=== PATIENT | female | born 1945 | race Caucasian/White ===

== ENCOUNTER → 2016-08-10 | Outpatient (CLI) | payer OTHER, MEDICARE ==
--- NOTE | 2016-08-10 10:06 | MA ---
Screening Digital Mammogram with Digital Breast Tomosynthesis Clinical Indications: Routine screening. Mother with history breast cancer in her 40s and again in he r 70s. Technique: Standard cephalocaudal projections are obtained. Digital breast tomosynthesis was perform ed in the MLO projection with reconstruction at 1.0 mm slice thickness and composite MLO views recons tructed. This examination is processed by the CAD computer aided detection system. Comparison: July 28, 2015; June 19, 2014; and studies dating back to May 24, 2009. Breast density: D; The breasts are extremely dense, which lowers the sensitivity of mammography. Findings: CAD was reviewed. There are no new masses, new clusters of microcalcifications, or significant axillary lymphadenopathy . Impression: Negative mammogram. BI-RADS 1. Recommendation: Routine screening mammogram is recommended in one year. Dense mammographic pattern limits the sensitivity of mammography in this patient. If there is a clini roosevelt palpable abnormality, recommend additional imaging with ultrasound if clinically indicated. [facility] will send a result letter to the patient. Negative mammography should not preclude additional workup of a clinically suspicious finding. The patient's information is entered into a reminder system with a target due date for her next mammo gram.
== END ==
LOC: FIMAGING 09:27
DX: Z12.31 Encounter for screening mammogram for malignant neoplasm of breast (principal); Z80.3 Family history of malignant neoplasm of breast
CPT/HCPCS: G0202

== ENCOUNTER → 2017-04-10 | Outpatient (CLI) | payer OTHER, MEDICARE | LOC: FIMAGING 13:47 | PROVIDERS: ATTEND Internal Medicine | DX: Z13.828 Encounter for screening for other musculoskeletal disorder (principal) ==

== ENCOUNTER → 2017-08-14 | Outpatient (CLI) | payer OTHER, MEDICARE | LOC: FIMAGING 11:12 | PROVIDERS: ATTEND Internal Medicine | DX: Z12.31 Encounter for screening mammogram for malignant neoplasm of breast (principal) ==

== ENCOUNTER 2018-03-04 07:01 | Inpatient (IN) | payer OTHER, MEDICARE ==
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
[2018-03-04] MEDS ORDERED: ONDANSETRON 4 MG/2 ML VIAL IVP PRN (08:44)
[2018-03-04] MEDS ORDERED: ONDANSETRON DISINTEGRATING 4 MG TAB PO PRN (08:44)
[2018-03-04 08:51] LABS: PLATELET COUNT 239 10^3/uL (150-400)
[2018-03-04] MEDS ORDERED: ACETAMINOPHEN 500 MG TAB PO SCH (09:00)
[2018-03-04] MEDS ORDERED: HYDROCODONE/APAP 5/325 TAB PO PRN (09:05)
[2018-03-04] MEDS ORDERED: ACETAMINOPHEN 500 MG TAB ONE (09:11)
[2018-03-04] MEDS ORDERED: ACETAMINOPHEN 650 MG/20.3 ML UDCUP ONE (09:13)
[2018-03-04] MEDS: ACETAMINOPHEN 650 MG/20.3 ML UDCUP PO SCH ×3 (09:14→21:56)
[2018-03-04] MEDS ORDERED: valACYclovir 500 MG TAB PO PRN (09:28)
[2018-03-04] MEDS ORDERED: IBUPROFEN 200 MG TAB PO PRN (09:47)
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
[2018-03-04] MEDS: ENOXAPARIN 40 MG/0.4 ML SYR SC SCH (16:19)
--- NOTE | 2018-03-04 17:41 | PDIAF ---
- Diagnosis Diagnosis: right pelvis fracture Code Status: Full Code - Medication Management Discharge Medications: Medications to Continue on Transfer Cholecalciferol (Vitamin D3) [Vitamin D3] 4 drop PO DAILY 03/04/18 [Last Taken 03/03/18] Digestzymes 2 cap PO BID@12,18 03/04/18 [Last Taken 03/03/18] Tobramycin/Dexamethasone [Tobradex Eye Ointment] 1 ildefonso FAYE CALDWELL@03/04/18 [ Last Taken Unknown] valACYclovir [Valtrex (*)] 500 mg PO BID PRN 03/04/18 [Last Taken Unknown] Discharge Medications: Refer to the Discharge Home Medication list for PRN reason. - Orders Services needed: Physical Therapy Activity/Weight Bearing Restrictions: wbat. rom as tolerated. seek attn for increasing pain, or other focal complaint. /fu at one month Additional Instructions: Read and follow provided instructions. Follow-up with your primary care physician in 1-2 days for re-evaluation. Take medication as prescribed. Return to the emergency department for worsening symptoms or other serious concerns. ortho wbat rom as tolerated f/u at one month for repeat evaluation and xrays - Follow Up Care Current Providers and Referrals: Patient,NotPresent [Unknown] - As per Instructions James Davison MD [Medical Doctor] -
--- NOTE | 2018-03-04 17:47 | PDMN ---
Medical Necessity Medical necessity: Pt meets IP criteria per MD; est los >2 mn for eval/tx R pubic ramus & sacral fx; requiring Ortho consult, further monitoring, pain management & therapies; hx chronic hypoxemic respiratory failure; per H&P & order 03/04/18
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
[2018-03-05] MEDS ORDERED: NS 500 ML IV ONE (04:00)
[2018-03-05] MEDS ORDERED: [UNRECOGNIZED DRUG - OTHER] PO SCH (09:00)
[2018-03-05] MEDS: CHOLECALCIFEROL PO SCH (09:47)
[2018-03-05] MEDS: ENOXAPARIN 40 MG/0.4 ML SYR SC SCH (09:51)
[2018-03-05] MEDS: ACETAMINOPHEN 650 MG/20.3 ML UDCUP PO SCH ×3 (09:51→21:41)
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
[2018-03-05] MEDS: [UNRECOGNIZED DRUG - OTHER] PO SCH ×2 (11:46→21:40)
[2018-03-05] MEDS: [UNRECOGNIZED DRUG - OTHER] PO SCH ×2 (11:46→17:32)
[2018-03-05] MEDS: [UNRECOGNIZED DRUG - OTHER] PO SCH ×2 (11:47→17:30)
[2018-03-05] MEDS: traMADol 50 MG TAB PO PRN (11:55)
--- NOTE | 2018-03-05 12:09 | HOSPPROG ---
Hospitalist Progress Note Assessment/Plan: #Right sacral, pumic rami fractures: no surgery needed, WBAT. Appreciate Dr. Davison's eval. FU 1 month for repeat imaging -PT, likely need SNF. CM to assist -sched APAP, PRN Tramadol #Hypotension: last night, suspect dehydrated. Resolved with IVFs. Denies CP, SOB. #UC: in remission #Diet: regular #DVT ppx: Lovenox #Disp: inpatient admission for pain control, PT Subjective: dizzy, BP dropped last night. No CP Objective: Vital Signs Temp Pulse Resp BP Pulse Ox 36.7 C 64 18 134/68 H 94 03/05/18 11:08 03/05/18 11:08 03/05/18 11:08 03/05/18 11:08 03/05/18 11:08 Laboratory Results 03/04/18 08:40 03/04/18 08:40 03/04/18 03/05/18 03/06/18 05:59 05:59 05:59 Intake Total 1550 Output Total 950 Balance 600 - Time Spent With Patient Time Spent with Patient: greater than 25 minutes Time Spent with Patient: Greater than 25 minutes spent on this patients care, greater than 50% of time spent counseling, educating, and coordinating care regarding the above mentioned plan. - Physical Exam Constitutional: no apparent distress Eyes: PERRL Ears, Nose, Mouth, Throat: moist mucous membranes Cardiovascular: regular rate and rhythym Respiratory: no respiratory distress Gastrointestinal: normoactive bowel sounds Genitourinary: no bladder fullness Skin: warm Musculoskeletal: other (TTP over right suprapubic bone, sacrum) ICD10 Worksheet Patient Problems: Problems Problem Status Onset Bilateral pubic rami fractures Acute Injury of right hip Acute Sacral fracture, closed Acute
[2018-03-06] MEDS: [UNRECOGNIZED DRUG - OTHER] PO SCH (05:48)
[2018-03-06] MEDS: ACETAMINOPHEN 650 MG/20.3 ML UDCUP PO SCH ×3 (08:22→21:19)
[2018-03-06] MEDS: ENOXAPARIN 40 MG/0.4 ML SYR SC SCH (08:23)
[2018-03-06] MEDS: traMADol 50 MG TAB PO PRN ×2 (08:23→13:29)
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
[2018-03-06] MEDS: CHOLECALCIFEROL PO SCH (09:17)
[2018-03-06] MEDS: [UNRECOGNIZED DRUG - OTHER] PO SCH ×2 (12:18→21:19)
[2018-03-06] MEDS: [UNRECOGNIZED DRUG - OTHER] PO SCH ×2 (12:18→18:11)
[2018-03-06] MEDS: [UNRECOGNIZED DRUG - OTHER] PO SCH ×2 (12:18→18:12)
[2018-03-07] MEDS: ACETAMINOPHEN 650 MG/20.3 ML UDCUP PO SCH ×2 (04:41→10:55)
[2018-03-07] MEDS: [UNRECOGNIZED DRUG - OTHER] PO SCH (06:29)
[2018-03-07] MEDS: CHOLECALCIFEROL PO SCH (08:17)
[2018-03-07] MEDS: ENOXAPARIN 40 MG/0.4 ML SYR SC SCH (08:18)
--- NOTE | 2018-03-07 10:52 | PDIAF ---
- Diagnosis Diagnosis: right pelvis fracture Code Status: Full Code - Medication Management Discharge Medications: Medications to Continue on Transfer Calcium Hydroxyapatite 1 cap PO BID@,03/04/18 [Last Taken 03/03/18] Digestzymes 2 cap PO BID@,03/04/18 [Last Taken 03/03/18] Glutaloemine 5.8 g PO DAILY 03/04/18 [Last Taken 03/03/18] Pepcix 1 tab PO BID@,03/04/18 [Last Taken 03/03/18] Tobramycin/Dexamethasone [Tobradex Eye Ointment] 1 ildefonso EACHQUANGE CALDWELL@03/04/18 [ Last Taken Unknown] valACYclovir [Valtrex (*)] 500 mg PO BID PRN 03/04/18 [Last Taken Unknown] Acetaminophen [Tylenol] 325 mg PO Q8 #30 capsule 03/07/18 [Last Taken Unknown] Cholecalciferol (Vitamin D3) [Vitamin D3] 4 drop PO DAILY 03/07/18 [Last Taken Unknown] Enoxaparin [Lovenox 40 MG (*)] 40 mg SC DAILY syr 03/07/18 [Last Taken Unknown] traMADol [Ultram 50 mg (*)] 25 - 50 mg PO Q6HRS PRN tab 03/07/18 [Last Taken Unknown] Discharge Medications: Refer to the Discharge Home Medication list for PRN reason. - Orders Services needed: Registered Nurse, Physical Therapy, Occupational Therapy Diet Recommendation: no restrictions on diet Activity/Weight Bearing Restrictions: wbat. rom as tolerated. seek attn for increasing pain, or other focal complaint. /fu at one month Additional Instructions: Read and follow provided instructions. Follow-up with your primary care physician in 1-2 days for re-evaluation. Take medication as prescribed. Return to the emergency department for worsening symptoms or other serious concerns. ortho wbat rom as tolerated f/u at one month for repeat evaluation and xrays - Follow Up Care Current Providers and Referrals: Patient,NotPresent [Unknown] - As per Instructions James Davison MD [Medical Doctor] -
[2018-03-07] MEDS: traMADol 50 MG TAB PO PRN (11:06)
[2018-03-07 11:17] VITALS: BP 154/82
--- NOTE | 2018-03-07 11:26 | ASMTLACE ---
LACE Length of stay for Answers: 3 days current admission Acuity / Level of Answers: Yes Care: Did the patient have an inpatient admission? Comorbidities - select Answers: Other Notes: Ulcerative colitis; NAYELI D all that apply # of Emergency department Answers: 1-2 visits in the last 6 months Score: 8 Date Signed: 03/07/2018 11:25 AM Electronically Signed By:ANGELINA Felder
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
[2018-03-07] MEDS: [UNRECOGNIZED DRUG - OTHER] PO SCH (12:26)
[2018-03-07] MEDS: [UNRECOGNIZED DRUG - OTHER] PO SCH (12:27)
[2018-03-07] MEDS: [UNRECOGNIZED DRUG - OTHER] PO SCH (12:27)
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
--- NOTE | 2018-03-07 16:42 | ASDISCHSUM ---
Discharge Information Plan Status:SNF Medically Cleared to Leave:03/07/2018 Discharge Date:03/07/2018 02:56 PM CM D/C Disposition: ADT D/C Disposition:Care Home Facility Projected Discharge Date:03/07/2018 11:00 AM Transportation at D/C: Discharge Delay Reason: Follow-Up Date:03/07/2018 11:00 AM Discharge Slot: Final Diagnosis: Placement Information Referral Type:*Detention/SNF Referral ID:[id number] Provider Name:[facility] Address 1:[address] Address 2: City:[place] Selection Factors: State:[place] Patient Contact Information Contact Name:MARJORIE Relationship: Address:[address] City:[place] Alternate Phone: State/Zip Code:[place] [address] Email: Financial Information Financial Class:Medicare Primary Plan Desc:MEDICARE INPATIENT Primary Plan Number:[id number] Secondary Plan Desc:JESÚS/MDR SUPPLEMENT Secondary Plan Number:[id number] Assessment Information LACE LACE Length of stay for Answers: 3 days current admission Acuity / Level of Answers: Yes Care: Did the patient have an inpatient admission? Comorbidities - select Answers: Other Notes: Ulcerative colitis; NAYELI D all that apply # of Emergency department Answers: 1-2 visits in the last 6 months Score: 8 Date Signed: 03/07/2018 11:25 AM Electronically Signed By:ANGELINA Felder [facility] Initial CM Assessment Living Arrangements What is your living Answers: With Spouse arrangement? Who do you live with? Type Of Residence What kind of residence do Answers: House you live in? Discharge Plan Comments Coordination Status Comments Notes: Pt is a 73 y/o female admitted for right pubic ramus and sacral fracture. PT is recommending SNF. CM met w/ pt for dispo planning. CM provided pt w/ senior blue book. Pt would like a referral made to [facility]. Anticipate d/c for . CM to follow. Plan: [facility] Date Signed: 03/05/2018 11:15 AM Electronically Signed By:ANGELINA Felder Case Management Discharge Plan Note Case Management Discharge Discharge Order Complete? Answers: Yes Patient to Obtain Answers: Other Notes: [facility] Medications Transportation Arranged Answers: Other Notes: Transportation provided by [facility] Transport will Pick (Date 03/07/2018 02:15 PM & Time) EMTALA Complete Answers: No Case Management Transport Answers: Yes Form Complete Faxed Final Orders Answers: Yes Agency/Facility Transfer Answers: Yes Report Printed & Faxed to Receiving Agency Family Notified Answers: No Discharge Comments Notes: Pts case discussed w/ Selma Glass NP and DESIREE Almaraz. Pt is being discharged today. 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 DC orders sent to [facility]. CM provided DESIREE Almaraz w/ phone number to give report. CM available for changes. [facility] Date Signed: 03/07/2018 11:27 AM Electronically Signed By:ANGELINA Felder Intervention Information Intervention Type:*IM-Signed Date of Service:03/07/2018 12:12 PM Patient Type:Inpatient Staff Member:Yoli Pearson Hours: Discipline: Severity: Comment:
== END 2018-03-07 14:56 | DRG 536 ==
LOC: F3E 09:29
PROVIDERS: ADMIT Internal Medicine; ATTEND Internal Medicine
DX: S32.810A Multiple fractures of pelvis with stable disruption of pelvic ring, initial encounter for closed fracture (principal); S32.119A Unspecified Zone I fracture of sacrum, initial encounter for closed fracture; W01.0XXA Fall on same level from slipping, tripping and stumbling without subsequent striking against object, initial encounter; Y92.480 Sidewalk as the place of occurrence of the external cause; J96.11 Chronic respiratory failure with hypoxia; K21.9 Gastro-esophageal reflux disease without esophagitis; I95.9 Hypotension, unspecified
CPT/HCPCS: 97110-GP; 97116-GP; 97161-GP; 97165-GO; 97530-GP; 97535-GO; G8978-GP-CK; G8979-GP-CI; G8980-GP-CJ; G8987-GO-CL; G8988-GO-CJ; J1650

== ENCOUNTER → 2018-08-28 | Outpatient (CLI) | payer OTHER, MEDICARE | LOC: FIMAGING 10:16 | PROVIDERS: ATTEND Internal Medicine | DX: Z12.31 Encounter for screening mammogram for malignant neoplasm of breast (principal); Z80.3 Family history of malignant neoplasm of breast ==

== ENCOUNTER → 2018-08-29 | Outpatient (CLI) | payer OTHER, MEDICARE | LOC: BMCIMAGING 09:33 | PROVIDERS: ATTEND Internal Medicine | DX: R92.8 Other abnormal and inconclusive findings on diagnostic imaging of breast (principal); R92.2 Inconclusive mammogram ==

== ENCOUNTER → 2018-12-27 | Outpatient (CLI) | payer OTHER, MEDICARE | LOC: FCPNEURO 20:00 ==